=== PATIENT | male | born 1985 | race Two or more races ===

== ENCOUNTER → 2021-12-02 10:12 | Outpatient (BNVA) | payer MEDICAID, SELFPAY | PROVIDERS: PCP Internal Medicine; Visit Provider Nurse Practitioner Family | DX: G40.309 Generalized idiopathic epilepsy and epileptic syndromes, not intractable, without status epilepticus (principal); G43.909 Migraine, unspecified, not intractable, without status migrainosus | CPT/HCPCS: 99202 ==